=== PATIENT | female | born 1995 | race Caucasian/White ===

== ENCOUNTER 2017-12-14 22:51 | Emergency (ER) | payer SELFPAY ==
[~2017-12-14] VITALS: Ht 157.5 cm; Wt 68.9 kg
[2017-12-14 22:54] VITALS: BP 133/69
--- NOTE | 2017-12-15 00:29 | NUR ---
XRAY AT BEDSIDE.
== END 2017-12-15 01:03 | disposition home or self-care (01) ==
LOC: ER 22:56
DX: J06.9 Acute upper respiratory infection, unspecified (principal)
CPT/HCPCS: 71045-TC; A4606; Z7610

== ENCOUNTER 2024-03-31 21:28 | Emergency (ER) | payer MEDICAID, OTHER ==
[~2024-03-31] VITALS: Ht 157.5 cm; Wt 80.7 kg
[2024-03-31 22:26] LABS: BASOPHILS % (AUTO) 0.6 % (0.0-2.0); EOSINOPHILS # (AUTO) 0.2 K/uL (0.0-0.7); EOSINOPHILS % (AUTO) 2.5 % (0.0-6.0); HEMATOCRIT 40 % (33-45); HEMOGLOBIN 13.9 g/dL (11.5-14.8); LYMPHOCYTES # (AUTO) 1.9 K/uL (0.8-4.8); LYMPHOCYTES % (AUTO) 25.2 % (20.0-44.0); MEAN CORPUSCULAR HEMOGLOBIN 30 PG (26.0-33.0); MEAN CORPUSCULAR HGB CONC 35 g/dl (31.0-36.0); MEAN CORPUSCULAR VOLUME 86 fL (82-100); MONOCYTES # (AUTO) 0.8 K/uL (0.1-1.30); MONOCYTES % (AUTO) 10.1 % (2.0-12.0); NEUTROPHILS # (AUTO) 4.8 K/uL (1.8-8.9); NEUTROPHILS % (AUTO) 61.6 % (43.0-81.0); PLATELET COUNT (AUTO) 258 K/uL (150-450); RED BLOOD CELL COUNT(AUTO) 4.63 MIL/uL (4.0-5.2); RED CELL DISTRIBUTION WIDTH 12.7 % (11.5-15.0); WHITE BLOOD COUNT (AUTO) 7.7 K/uL (4.3-11.0)
[2024-03-31 22:41] LABS: CALCIUM, SERUM 9.2 mg/dL (8.5-10.1); CARBON DIOXIDE 30 mmol/L (21-32); CHLORIDE 105 mmol/L (98-107); CREATININE 0.9 mg/dL (0.6-1.3); GLUCOSE 96 mg/dL (74-106); SODIUM SERUM 142 mmol/L (136-145); UREA NITROGEN, BLOOD 8 mg/dL (7-18)
[2024-03-31] MEDS ORDERED: ACETAMINOPHEN ES 500 MG TABLET ONE (22:44)
[2024-03-31] MEDS: ACETAMINOPHEN ES 500 MG TABLET PO ONE (22:55)
[2024-03-31] MEDS: IV NS 0.9% 1,000 ML BAG IV ONE (22:55)
[2024-03-31 23:21] LABS: PREGNANCY TEST URINE QUAL NEGATIVE (NEGATIVE)
[2024-03-31 23:22] LABS: APPEARANCE,URINE TURBID (CLEAR); BILIRUBIN,URINE NEGATIVE (NEGATIVE); BLOOD, URINE NEGATIVE Ery/uL (NEGATIVE); COLOR,URINE DARK YELLOW (YELLOW); KETONES,URINE NEGATIVE (NEGATIVE); LEUKOCYTE ESTERASE ,URINE 2+ (NEGATIVE); NITRITE, URINE NEGATIVE (NEGATIVE); PROTEIN,URINE NEGATIVE (NEGATIVE); UGLUCOSE NEGATIVE (NEGATIVE)
[2024-03-31 23:23] LABS: ADD URINE CULTURE YES; BACTERIA,URINE Moderate /HPF (None Seen); RBC,URINE 0-2 /HPF (0-2); SQUAMOUS EPITHELIAL CELL,UR Few /HPF (None Seen)
[2024-03-31 23:43] LABS: BILIRUBIN,TOTAL 0.4 mg/dL (0.2-1.0)
[2024-03-31 23:44] LABS: ALBUMIN 3.6 g/dL (3.4-5.0); BILIRUBIN,DIRECT 0.1 mg/dL (0.0-0.2); TOTAL PROTEIN, SERUM 7.5 g/dL (6.4-8.2)
[2024-04-01 02:11] VITALS: BP 107/75; O2SAT 98
== END 2024-04-01 02:11 | disposition home or self-care (01) ==
LOC: ER 21:32
DX: R07.89 Other chest pain (principal); R10.13 Epigastric pain; R19.7 Diarrhea, unspecified; R53.1 Weakness; Z85.850 Personal history of malignant neoplasm of thyroid; Z90.49 Acquired absence of other specified parts of digestive tract
CPT/HCPCS: 99285; 96360; 71045; 93005; 85025; 80048; 87086; 83690; 80076; 84703; 81001; 36415 ×2; 84443; 84484 ×2; J7030

== ENCOUNTER 2024-06-06 09:07 | Emergency (ER) | payer OTHER ==
[~2024-06-06] VITALS: Ht 157.5 cm; Wt 80.7 kg
[2024-06-06] MEDS ORDERED: ONDANSETRON HCL/PF 4 MG/2 ML VIAL ONE ×2 (10:17→13:11)
[2024-06-06] MEDS ORDERED: FAMOTIDINE/PF INJ 20 MG/2 ML VIAL IV ONE (10:25)
[2024-06-06] MEDS: ONDANSETRON HCL/PF 4 MG/2 ML VIAL IVP ONE (10:30)
[2024-06-06] MEDS: FAMOTIDINE/PF INJ 20 MG/2 ML VIAL IV ONE (10:30)
[2024-06-06] MEDS: IV LR 1000 ML 1,000 ML BAG IV ONE (10:30)
[2024-06-06 10:44] LABS: BASOPHILS % (AUTO) 0.4 % (0.0-2.0); EOSINOPHILS # (AUTO) 0.1 K/uL (0.0-0.7); HEMATOCRIT 47 % (33-45); LYMPHOCYTES # (AUTO) 1.8 K/uL (0.8-4.8); LYMPHOCYTES % (AUTO) 20.6 % (20.0-44.0); MEAN CORPUSCULAR HEMOGLOBIN 30 PG (26.0-33.0); MEAN CORPUSCULAR HGB CONC 34 g/dl (31.0-36.0); MEAN CORPUSCULAR VOLUME 86 fL (82-100); MONOCYTES # (AUTO) 0.7 K/uL (0.1-1.30); MONOCYTES % (AUTO) 7.8 % (2.0-12.0); NEUTROPHILS # (AUTO) 6.1 K/uL (1.8-8.9); NEUTROPHILS % (AUTO) 70.2 % (43.0-81.0); PLATELET COUNT (AUTO) 285 K/uL (150-450); RED BLOOD CELL COUNT(AUTO) 5.41 MIL/uL (4.0-5.2); RED CELL DISTRIBUTION WIDTH 12.9 % (11.5-15.0); WHITE BLOOD COUNT (AUTO) 8.7 K/uL (4.3-11.0)
[2024-06-06 10:58] LABS: ALBUMIN 4.1 g/dL (3.4-5.0); BILIRUBIN,DIRECT 0.2 mg/dL (0.0-0.2); BILIRUBIN,TOTAL 0.6 mg/dL (0.2-1.0); CALCIUM, SERUM 8.5 mg/dL (8.5-10.1); CREATININE 0.7 mg/dL (0.6-1.3); POTASSIUM 3.9 mmol/L (3.5-5.1)
[2024-06-06] MEDS: ONDANSETRON HCL/PF 4 MG/2 ML VIAL IV ONE (13:00)
[2024-06-06] MEDS ORDERED: METOCLOPRAMIDE HCL 10 MG/2 ML VIAL ONE (14:23)
[2024-06-06] MEDS: METOCLOPRAMIDE HCL 10 MG/2 ML VIAL IV ONE (14:28)
[2024-06-06] MEDS ORDERED: METO-295 PO (14:52)
[2024-06-06 15:11] VITALS: BP 121/68; TEMP 99.4; O2SAT 100
== END 2024-06-06 15:11 | disposition home or self-care (01) ==
LOC: ER 09:21
DX: R11.2 Nausea with vomiting, unspecified (principal); R19.7 Diarrhea, unspecified; R10.13 Epigastric pain; R05.9 Cough, unspecified; Z85.850 Personal history of malignant neoplasm of thyroid; Z88.8 Allergy status to other drugs, medicaments and biological substances; Z90.49 Acquired absence of other specified parts of digestive tract
CPT/HCPCS: 99284; 96374; 96375; 96361; 96376; 85025; 80048; 83690; 80076; 36415; J3490; J2765; J2405 ×2; J7120 ×2

== ENCOUNTER 2025-04-02 20:00 | Emergency (ER) | payer OTHER ==
[~2025-04-02] VITALS: Ht 154.9 cm; Wt 81.6 kg
[~2025-04-02 20:00] MED LIST: METO-295 PO
[2025-04-02] MEDS ORDERED: CEPH-570 PO (20:44)
[2025-04-02] MEDS ORDERED: CEFTRIAXONE 1 G VIAL ONE (20:52)
[2025-04-02] MEDS ORDERED: LIDOCAINE 1% INJ 50 ML MDV IJ ONE (20:54)
[2025-04-02] MEDS: CEFTRIAXONE 1 G VIAL IM ONE (21:02)
[2025-04-02 21:14] LABS: PREGNANCY TEST URINE QUAL NEGATIVE (NEGATIVE)
[2025-04-02 21:15] LABS: APPEARANCE,URINE CLEAR (CLEAR); BLOOD, URINE NEGATIVE Ery/uL (NEGATIVE); LEUKOCYTE ESTERASE ,URINE 1+ (NEGATIVE); NITRITE, URINE NEGATIVE (NEGATIVE); UGLUCOSE NEGATIVE (NEGATIVE)
[2025-04-02 21:22] LABS: SQUAMOUS EPITHELIAL CELL,UR Moderate /HPF (None Seen)
[2025-04-02 21:23] LABS: ADD URINE CULTURE YES
[2025-04-02 21:50] VITALS: BP 115/76; TEMP 98.6; O2SAT 98
== END 2025-04-02 21:51 | disposition home or self-care (01) ==
LOC: ER 20:01
DX: N39.0 Urinary tract infection, site not specified (principal); Z85.850 Personal history of malignant neoplasm of thyroid; Z90.49 Acquired absence of other specified parts of digestive tract; Z79.899 Other long term (current) drug therapy
CPT/HCPCS: 99283; 96372; 87086; 84703; 81001; J3490; J0696